=== PATIENT | female | born 1995 | race Caucasian/White ===

== ENCOUNTER 2024-08-14 07:30 | Emergency (ER) | payer OTHER, SELFPAY ==
[2024-08-14 07:43] VITALS: BP 109/61; PULSE 69; TEMP 36.6; O2SAT 99; BMI 34.7
[2024-08-14 07:57] VITALS: O2SAT 100
[2024-08-14] MEDS: 0.9 % SODIUM CHLORIDE 1,000 ML 1000 ML IV (08:01)
[2024-08-14] MEDS: KETOROLAC TROMETHAMINE 30 MG/ML VIAL 15 MG IVP (08:01)
[2024-08-14 08:02] LABS: Bilirubin Urine NEGATIVE (NEGATIVE); Blood Urine TRACE-I (NEGATIVE); Clarity Urine CLEAR (CLEAR); Color Urine YELLOW (YELLOW); Glucose Urine UA NEGATIVE (NEGATIVE); Ketones Urine NEGATIVE (NEGATIVE); Leukocyte Esterase Urine NEGATIVE (NEGATIVE); Nitrite Urine NEGATIVE (NEGATIVE); Protein Urine NEGATIVE (NEG/TRACE); Specific Gravity Urine 1.025 (1.005-1.025); Urobilinogen Urine 0.2 EU/dL (0.2-1.0)
[2024-08-14 08:05] LABS: Urine Microscopic Indicated YES
[2024-08-14 08:09] LABS: Basophils Absolute Auto 0.1 10^3/uL (0.0-0.1); Basophils Percent Auto 0.9 % (0.2-2.0); Eosinophils Absolute Auto 0.4 10^3/uL (0.0-0.7); Eosinophils Percent Auto 3.5 % (0.9-7.0); Hematocrit 45.2 % (36.0-48.0); Hemoglobin 15.4 g/dL (12.0-16.0); Immature Granulocytes Abs Auto 0.04 10^3/uL (0.00-0.03); Immature Granulocytes Pct Auto 0.4 % (0.0-0.5); Lymphocytes Absolute Auto 3.2 10^3/uL (1.2-3.8); Lymphocytes Percent Auto 29.2 % (20.5-60.0); Mean Corpuscular HGB Conc 34.1 g/dL (29.9-35.2); Mean Corpuscular Hemoglobin 29.5 pg (26.7-34.0); Mean Corpuscular Volume 86.6 fL (81.0-99.0); Mean Platelet Volume 11.5 fL (9.5-13.5); Monocytes Absolute Auto 0.6 10^3/uL (0.3-0.8); Monocytes Percent Auto 5.5 % (1.7-12.0); Neutrophils Absolute Auto 6.5 10^3/uL (1.4-6.5); Neutrophils Percent Auto 60.5 % (43.0-75.0); Platelet Count 294 10^3/uL (150-450); Red Blood Count 5.22 10^6/uL (4.20-5.40); Red Cell Distribution Width 13.2 % (11.0-15.0); White Blood Count 10.8 10^3/uL (4.0-11.0)
[2024-08-14 08:13] LABS: HCG Qualitative NEGATIVE (NEGATIVE); Internal Control Within Normal Limits
[2024-08-14 08:19] LABS: Alanine Aminotransferase 19 U/L (14-59); Albumin Globulin Ratio 1.1; Albumin Level 3.4 g/dL (3.4-5.0); Alkaline Phosphatase 69 U/L (46-116); Aspartate Amino Transferase 15 U/L (15-37); BUN Creatinine Ratio 18.8; Bilirubin Total 0.6 mg/dL (0.2-1.0); Calcium 8.4 mg/dL (8.5-10.1); Carbon Dioxide 25.8 mmol/L (21.0-32.0); Chloride 106 mmol/L (98-107); Estimated GFR (African America >60 (>=60 mL/min/1.73m^2); Estimated GFR (Non-African Ame >60 (>=60 mL/min/1.73m^2); Glucose 100 mg/dL (74-106); Potassium 3.8 mmol/L (3.5-5.1); Sodium 141 mmol/L (136-145); Total Protein 6.4 g/dL (6.4-8.2)
[2024-08-14 08:24] LABS: Bacteria Urine MODERATE #/HPF (NONE SEEN); Cast Seen? NONE SEEN #/LPF (NONE SEEN); Crystals Seen? None Seen #/HPF (None Seen); Mucus Urine NONE SEEN (NONE SEEN); Squamous Epithelial Cell Urine MODERATE #/LPF (NONE/RARE); Urine Culture Indicated YES-FRMC; WBC Urine 0-2 #/HPF (NONE SEEN)
--- NOTE | 2024-08-14 09:53 | ED.ABDPAIN1 ---
HPI - Abdominal Pain General Chief Complaint: Abdominal Pain Stated Complaint: L ABDOMINAL PAIN Time Seen by Provider: 08/14/24 07:48 Source: patient Mode of arrival: Wheelchair Limitations: no limitations History of Present Illness HPI narrative: The patient is coming to the ER complaining of 2 days history of left abdominal pain she is wanting to the left mid abdomen almost with radiation to the back. The patient pain is not associated with any nausea vomiting or any fever or chills she mentioned that it could be related to the change of diet that she recently had, she denies any constipation, she also denies any other concerns of burning with urination, patient mentioned that she did not use anything [id number] for the pain and she also requested a work excuse No other concerns Related Data Home Medications ?Medication ?Instructions ?Recorded ?Confirmed fluoxetine 10 mg capsule 10 mg PO DAILY 08/14/24 08/14/24 trazodone 50 mg tablet 50 mg PO BEDTIME 08/14/24 08/14/24 Allergies Allergy/AdvReac Type Severity Reaction Status Date / Time amoxicillin AdvReac Mild Hives Verified 08/14/24 07:43 Penicillins AdvReac Mild Hives Verified 08/14/24 07:43 red dye AdvReac Mild Hives Verified 08/14/24 07:43 Review of Systems ROS Status of ROS 10 or more systems reviewed and unremarkable except as noted in history and below Exam Narrative Exam Narrative: Nurses notes and vital signs reviewed and patient is not hypoxic. General: Well-appearing and in no apparent distress. Skin: Warm, dry, no pallor noted. No rash. Head: Normocephalic, atraumatic. Neck: Supple, non-tender. Eye: Pupils are equal, round and EOMI. No scleral icterus. Ears, Nose, Mouth, and Throat: TM are clear, no nasal mucosal hypertrophy. Oral mucosa is moist, no posterior oropharynx erythema, uvula is mid-line Cardiovascular: Regular Rate and Rhythm without murmur, gallop or rub. Respiratory: No accessory muscle use or respiratory distress. Lungs are clear to auscultation, no wheezing, rales or rhonchi Chest Wall: no tenderness Back: No midline thoracic or lumbar vertebral tenderness. Left CVA tenderness Musculoskeletal: normal ROM, no calf or popliteal tenderness, no lower extremity edema/swelling GI: Abdomen is soft, non-distended. Normal bowel sounds. No masses appreciated. The abdomen tenderness is mostly toward the mid abdomen and the left side is higher than the level of the pelvis. Neurological: A&O x4. No cranial nerve dysfunction observed. No truncal ataxia. Moves all extremities. Sensation intact. Psychiatric: Cooperative and interactive. Normal mood and affect. Constitutional Vital Signs, click to edit/add: Last Vital Signs Temp 97.8 F 08/14/24 07:43 Pulse 69 08/14/24 07:43 Resp 18 08/14/24 07:43 BP 109/61 08/14/24 07:43 Pulse Ox 100 08/14/24 07:57 O2 Del Method Room Air 08/14/24 07:57 Course Vital Signs Vital signs: Vital Signs Temperature 97.8 F 08/14/24 07:43 Pulse Rate 69 08/14/24 07:43 Respiratory Rate 18 08/14/24 07:43 Blood Pressure 109/61 08/14/24 07:43 Pulse Oximetry 99 08/14/24 07:43 Oxygen Delivery Method Room Air 08/14/24 07:43 Temperature 97.8 F 08/14/24 07:43 Pulse Rate 69 08/14/24 07:43 Respiratory Rate 18 08/14/24 07:43 Blood Pressure 109/61 08/14/24 07:43 Pulse Oximetry 100 08/14/24 07:57 Oxygen Delivery Method Room Air 08/14/24 07:57 MDM - Abdominal Pain MDM Narrative Medical decision making narrative: The patient was tender on mild superficial palpation on the back as well as the left mid abdomen It is higher than was expected to be expected for ovarian torsion and the pain has been going on for 2 days and the patient is not that much distressed She actually at certain point when I was trying to talk to her she was just covering her head with a blanket and closing her eyes and sleeping while I am talking to her The patient requested the work excuse multiple time CBC and chemistry showed no acute pathology and the test was negative Patient feeling much better after Toradol and the CAT scan without contrast of the abdomen and pelvis showed no acute pathology The patient urine shows some bacteria no concern for UTI at the moment Patient to monitor her symptoms at home and she was provided with a work excuse the patient is to follow up with primary care physician in next 2-3 days or to return to the emergency department should any of the signs or symptoms worsen or new symptoms develop. The patient agrees with the following Diagnosis and Treatment plan and the patient will be discharged home. Lab Data Labs: Lab Results 08/14/24 08/14/24 Range/Units 07:45 07:49 WBC 10.8 (4.0-11.0) 10^3/uL RBC 5.22 (4.20-5.40) 10^6/uL Hgb 15.4 (12.0-16.0) g/dL Hct 45.2 (36.0-48.0) % MCV 86.6 (81.0-99.0) fL MCH 29.5 (26.7-34.0) pg MCHC 34.1 (29.9-35.2) g/dL RDW 13.2 (11.0-15.0) % Plt Count 294 (150-450) 10^3/uL MPV 11.5 (9.5-13.5) fL Neut % (Auto) 60.5 (43.0-75.0) % Lymph % (Auto) 29.2 (20.5-60.0) % [place] % (Auto) 5.5 (1.7-12.0) % Eos % (Auto) 3.5 (0.9-7.0) % Baso % (Auto) 0.9 (0.2-2.0) % Neut # (Auto) 6.5 (1.4-6.5) 10^3/uL Lymph # (Auto) 3.2 (1.2-3.8) 10^3/uL [place] # (Auto) 0.6 (0.3-0.8) 10^3/uL Eos # (Auto) 0.4 (0.0-0.7) 10^3/uL Baso # (Auto) 0.1 (0.0-0.1) 10^3/uL Abs Immat Gran (auto) 0.04 H (0.00-0.03) 10^3/uL Imm/Tot Granulo (auto) 0.4 (0.0-0.5) % Sodium 141 (136-145) mmol/L Potassium 3.8 (3.5-5.1) mmol/L Chloride 106 (98-107) mmol/L Carbon Dioxide 25.8 (21.0-32.0) mmol/L Anion Gap 13.0 BUN 12.0 (7.0-18.0) mg/dL Creatinine 0.64 (0.55-1.02) mg/dL Est GFR ( Amer) >60 (>=60 mL/min/1.73m^2) Est GFR (Non-Af Amer) >60 (>=60 mL/min/1.73m^2) BUN/Creatinine Ratio 18.8 Glucose 100 (74-106) mg/dL Calcium 8.4 L (8.5-10.1) mg/dL Total Bilirubin 0.6 (0.2-1.0) mg/dL AST 15 (15-37) U/L ALT 19 (14-59) U/L Alkaline Phosphatase 69 (46-116) U/L Total Protein 6.4 (6.4-8.2) g/dL Albumin 3.4 (3.4-5.0) g/dL Globulin 3.0 g/dL Albumin/Globulin Ratio 1.1 Serum HCG, Qual Negative (NEGATIVE) Urine Color Yellow (YELLOW) Urine Clarity Clear (CLEAR) Urine pH 6.0 (5.0-9.0) Ur Specific [place] 1.025 (1.005-1.025) Urine Protein Negative (NEG/TRACE) mg/dL Urine Glucose (UA) Negative (NEGATIVE) mg/dL Urine Ketones Negative (NEGATIVE) mg/dL Urine Occult Blood Trace-i (NEGATIVE) Urine Nitrite Negative (NEGATIVE) Urine Bilirubin Negative (NEGATIVE) Urine Urobilinogen 0.2 (0.2-1.0) EU/dL Ur Leukocyte Esterase Negative (NEGATIVE) Urine RBC 2-5 A (0-2) #/HPF Urine WBC 0-2 A (NONE SEEN) #/HPF Ur Squamous Epith Cells Moderate A (NONE/RARE) #/LPF Urine Crystals None seen (None Seen) #/HPF Urine Bacteria Moderate A (NONE SEEN) #/HPF Urine Casts None seen (NONE SEEN) #/LPF Urine Mucus None seen (NONE SEEN) Ur Culture Indicated? Yes-[facility] [place] Discharge Plan Discharge Chief Complaint: Abdominal Pain Clinical Impression: Acute left lower quadrant pain, Back pain Patient Disposition: Home, Self-Care Time of Disposition Decision: 09:54 Condition: Good Prescriptions / Home Meds: No Action trazodone 50 mg tablet 50 mg PO BEDTIME fluoxetine 10 mg capsule 10 mg PO DAILY Print Language: Romansh Instructions: Abdominal Pain (ED) Referrals: Brittni Mon [Primary Care Provider] - 1 week
[2024-08-14 10:08] VITALS: BP 127/84; PULSE 74; O2SAT 99
== END 2024-08-14 10:09 | disposition home or self-care (01) ==
PROVIDERS: Emergency Provider Emergency Medicine; PCP Nurse Practitioner Family
DX: R10.32 Left lower quadrant pain (principal); M54.9 Dorsalgia, unspecified; Z90.49 Acquired absence of other specified parts of digestive tract
CPT/HCPCS: 36415; 74176; 80053; 81001; 84703; 85025; 87086; 96374; 99285; J1885